=== PATIENT | male | born 1995 | race Hispanic/Latino ===

== ENCOUNTER 2024-01-31 22:55 | Emergency (ER) | payer MEDICAID ==
[~2024-01-31] VITALS: Ht 167.6 cm; Wt 54.4 kg
[2024-01-31] MEDS: LIDOCAINE HCL 1% 20 ML VIAL INJ SCH (23:26)
[2024-02-01] MEDS: TETANUS/DIPHTHERIA TOXOID [ADULT] 0.5 ML VIAL IM ONE (00:36)
[2024-02-01 00:57] VITALS: BP 135/66; PULSE 87; RESP 16; O2SAT 99
== END 2024-02-01 01:10 ==
LOC: EDH 22:55 → EEVIPCON 22:55 → EDH 02-01 01:10
DX: S81.811A Laceration without foreign body, right lower leg, initial encounter (principal); X99.0XXA Assault by sharp glass, initial encounter; Y93.89 Activity, other specified; Y92.89 Other specified places as the place of occurrence of the external cause; Y99.8 Other external cause status
CPT/HCPCS: 12002; 73130; 73590; 90471; 90714